=== PATIENT | female | born 2000 ===

== ENCOUNTER 2018-03-15 06:40 | Emergency (ER) | payer SELFPAY ==
--- NOTE | 2018-03-15 08:01 | ED PDOC ---
HPI: CCC, URI, Sore Throat Time Seen by Provider: 03/15/18 07:10 Chief Complaint (Nursing): ENT Problem Chief Complaint (Provider): ENT Problem History Per: Patient History/Exam Limitations: no limitations Onset/Duration Of Symptoms: Days (x 5 days ) Current Symptoms Are (Timing): Still Present Location Of Pain: Throat Additional Complaint(s): 18 year old female presents to the ED with a sore throat for the last 5 days. Patient complains of painful swallowing, runny nose and nasal congestion. She reports having a 106 fever on 5 days ago that resolved on its own without her taking any medications. Denies any other medical complaints. PMD: Dr. Raji Alex Past Medical History Reviewed: Historical Data, Nursing Documentation, Vital Signs Vital Signs: Last Vital Signs Temp 98.5 F 03/15/18 06:50 Pulse 82 03/15/18 06:50 Resp 16 03/15/18 06:50 BP 122/78 03/15/18 06:50 Pulse Ox 100 03/15/18 06:50 - Medical History PMH: No Chronic Diseases - Surgical History Surgical History: No Surg Hx - Family History Family History: States: Unknown Family Hx - Home Medications Home Medications: Ambulatory Orders Medication Instructions Recorded Fluconazole [Diflucan] 150 mg PO ONCE #1 tab 02/06/16 Metronidazole [Metrogel] 60 gm VAG HS #1 packet 02/06/16 - Allergies Allergies/Adverse Reactions: Allergies Allergy/AdvReac Type Severity Reaction Status Date / Time ziprasidone HCl [From Geodon] AdvReac RASH Verified 03/15/18 06:50 ziprasidone mesylate AdvReac RASH Verified 03/15/18 06:50 [From Geodon] Review of Systems ROS Statement: Except As Marked, All Systems Reviewed And Found Negative ENT: Positive for: Nose Discharge, Nose Congestion, Throat Pain Physical Exam - Reviewed Nursing Documentation Reviewed: Yes Vital Signs Reviewed: Yes - Physical Exam Appears: Positive for: Non-toxic, No Acute Distress Head Exam: Positive for: ATRAUMATIC, NORMOCEPHALIC Skin: Positive for: Normal Color, Warm, Dry Eye Exam: Positive for: EOMI, Normal appearance, PERRL ENT: Positive for: Normal ENT Inspection, Nasal Congestion (mild ), Other ( uvula is midline). Negative for: Pharyngeal Erythema, Tonsillar Exudate Neck: Positive for: Normal, Painless ROM, Supple Cardiovascular/Chest: Positive for: Regular Rate, Rhythm Respiratory: Positive for: CNT, Normal Breath Sounds Gastrointestinal/Abdominal: Positive for: Normal Exam, Soft Neurologic/Psych: Positive for: Alert, Oriented (x 3) - ECG O2 Sat by Pulse Oximetry: 100 (RA) Pulse Ox Interpretation: Normal Medical Decision Making Medical Decision Making: Time: Impression: URI, strep throat, seasonal allergies Initial Plan: --Urine preg --Motrin 600 mg PO --Rapid strep Scribe Attestation: Documented by Jane Davis, acting as a scribe for Mariel Loomis MD Provider Scribe Attestation: All medical record entries made by the Scribe were at my direction and personally dictated by me. I have reviewed the chart and agree that the record accurately reflects my personal performance of the history, physical exam, medical decision making, and the department course for this patient. I have also personally directed, reviewed, and agree with the discharge instructions and disposition. Disposition - Disposition
[2018-03-15 10:10] VITALS: BP 120/70; PULSE 74; RESP 20; TEMP 98; O2SAT 98
== END 2018-03-15 10:09 | disposition home or self-care (01) ==
LOC: H.ER 06:40
DX: J02.0 Streptococcal pharyngitis (principal); J30.2 Other seasonal allergic rhinitis; J06.9 Acute upper respiratory infection, unspecified

== ENCOUNTER 2018-11-15 23:20 | Emergency (ER) | payer MEDICAID ==
[2018-11-15 23:31] VITALS: RESP 18
[2018-11-15] MEDS ORDERED: Pantoprazole 40 mg Susp UD PO STA (23:45)
[2018-11-16] MEDS ORDERED: Pantoprazole 40 mg EC Tab PO ONE (00:13)
[2018-11-16 02:01] VITALS: TEMP 98; O2SAT 100
--- NOTE | 2018-11-16 02:12 | ED PDOC ---
HPI: Abdomen Time Seen by Provider: 11/15/18 23:41 Chief Complaint (Nursing): GI Problem Chief Complaint (Provider): Nausea without vomiting or pain History Per: Patient History/Exam Limitations: no limitations Onset/Duration Of Symptoms: Mins (sixty) Outside of [place] travel?: No Current Symptoms Are (Timing): Better Location Of Pain/Discomfort: Other (none) Quality Of Discomfort: Unable To Describe Associated Symptoms: Nausea Additional Complaint(s): Pt presents to the ED complaining of nausea without pain or vomiting; pt denies fever or other symptoms Past Medical History Reviewed: Historical Data, Nursing Documentation, Vital Signs Vital Signs: Last Vital Signs Temp 98 F 11/16/18 02:00 Pulse 71 11/16/18 02:00 Resp 18 11/16/18 02:00 BP 122/71 11/16/18 02:00 Pulse Ox 100 11/16/18 02:00 - Family History Family History: States: Unknown Family Hx - Home Medications Home Medications: Ambulatory Orders Medication Instructions Recorded Fluconazole [Diflucan] 150 mg PO ONCE #1 tab 02/06/16 Metronidazole [Metrogel] 60 gm VAG HS #1 packet 02/06/16 Loratadine/Pseudoephedrine 1 each PO DAILY PRN #5 tab.er.24h 03/15/18 [Claritin-D 24 Hour Tablet] Ondansetron ODT [Zofran ODT] 4 mg PO PRN PRN #7 odt 11/16/18 - Allergies Allergies/Adverse Reactions: Allergies Allergy/AdvReac Type Severity Reaction Status Date / Time ziprasidone HCl [From Geodon] AdvReac RASH Verified 03/15/18 06:50 ziprasidone mesylate AdvReac RASH Verified 03/15/18 06:50 [From Geodon] Review of Systems ROS Statement: Except As Marked, All Systems Reviewed And Found Negative Gastrointestinal: Positive for: Nausea Physical Exam - Reviewed Nursing Documentation Reviewed: Yes Vital Signs Reviewed: No - Physical Exam Appears: Positive for: Well Head Exam: Positive for: ATRAUMATIC, NORMAL INSPECTION Skin: Positive for: Normal Color, Warm, Dry. Negative for: Diaphoresis, Pallor, Rash Eye Exam: Positive for: Normal appearance Neck: Positive for: Normal, Painless ROM, Supple. Negative for: Decreased ROM Cardiovascular/Chest: Positive for: Regular Rate, Rhythm Respiratory: Positive for: Normal Breath Sounds Gastrointestinal/Abdominal: Positive for: Normal Exam, Bowel Sounds (posotive in all four quadrants), Soft. Negative for: Tenderness, Organomegaly, Guarding, Rebound - ECG O2 Sat by Pulse Oximetry: 100 Medical Decision Making Medical Decision Making: Pt fiven protonix, benadryl and zofran Pt fells better and desires to go home on reevalation Disposition - Clinical Impression Clinical Impression: Gastroenteritis - Patient ED Disposition Is Patient to be Admitted: No - Disposition Referrals: [facility] [Outside] Disposition: Routine/Home Disposition Time: 02:14 Condition: STABLE Prescriptions: Ondansetron ODT [Zofran ODT] 4 mg PO PRN PRN #7 odt PRN Reason: Nausea/Vomiting Instructions: Gastritis (DC)
[2018-11-16 02:28] VITALS: BP 110/68; PULSE 72
== END 2018-11-16 02:26 | disposition home or self-care (01) ==
LOC: H.ER 23:20
DX: K52.9 Noninfective gastroenteritis and colitis, unspecified (principal)